=== PATIENT | male | born 1940 | race American Indian/Alaskan Native ===

== ENCOUNTER 2017-01-03 07:37 | Outpatient (CLI) | payer MEDICARE ==
--- NOTE | 2017-01-03 11:08 | Cat Scan Report ---
CT scan of abdomen and pelvis without IV contrast: History: Malignant neoplasm of prostate. Findings: Normal lung bases. No pleural or pericardial effusion. Normal liver spleen pancreas and gallbladder. Normal adrenals. There is 5 mm nonobstructing calculus noted left kidney. 1 mm nonobstructing calculus right kidney. Normal bladder. No free intraperitoneal fluid or air. No evidence of adenopathy. Normal aorta. Normal appendix and terminal ileum. No evidence of diverticulitis. Gaseous colon with minimal volume stool in colon. Subarticular cyst formation is noted at the lumbar vertebral bodies with osteophytes at the articular surface probably related to degenerative changes and less likely metastatic disease. If clinically indicated bone scan examination may be advised. Impression: Nonobstructing calculus right and left kidney. Additional findings as detailed above.
--- NOTE | 2017-01-06 10:29 | Nuclear Medicine Report ---
Whole body bone scan: Examination performed 825 mCi technetium 99 MDP. Findings: Uniform distribution of activity is noted at barium, cervical, thoracic and lumbar spine. Normal activity is noted in the pelvis and ribs. Focal area of increased activity is noted at the sternum. Focal area of increase in activity is noted at the region of the left greater trochanter and right greater trochanter. Normal activity is noted at the kidneys and bladder. Impression: Focal area of increase activity in the sternum may be posttraumatic or from metastasis. Radiographic correlation may be advised. Focal areas of increased activity at the right and left greater trochanter. Radiographic correlation is advised.
== END 2017-01-03 07:38 | disposition home or self-care (01) ==
LOC: NM 07:37
PROVIDERS: ATTEND Urology
DX: C61 Malignant neoplasm of prostate (principal); N20.0 Calculus of kidney; M85.68 Other cyst of bone, other site; M25.78 Osteophyte, vertebrae
CPT/HCPCS: 74176; 78306; A9503

== ENCOUNTER 2019-09-01 11:02 | Observation (INO) | payer MEDICARE ==
[2019-08-25 12:02] LABS: Basophils % (Auto) 0.8 % (0.0-1.8); Eosinophils % (Auto) 1.4 % (0.0-4.3); Hematocrit 40.2 % (35.5-45.6); Hemoglobin 13.4 gm/dl (11.8-15.2); Lymphocytes # (Auto) 0.5 K/mm3 (1.2-5.4); Lymphocytes % (Auto) 18.2 % (13.4-35.0); Mean Corpuscular HGB Conc 33 % (32-34); Mean Corpuscular Volume 94 fl (84-94); Monocytes # (Auto) 0.3 K/mm3 (0.0-0.8); Monocytes % (Auto) 11.4 % (0.0-7.3); Platelet Count 170 K/mm3 (140-440); Red Blood Count 4.28 M/mm3 (3.65-5.03); Red Cell Distribution Width 13.8 % (13.2-15.2)
--- NOTE | 2019-08-25 12:07 | Anesthesia Consultation ---
Anesthesia Consult and Med Hx Date of service: 08/25/19 - Airway Anesthetic Teeth Evaluation: Partials ROM Head & Neck: Adequate Mental/Hyoid Distance: Adequate Mallampati Class: Class II Intubation Access Assessment: Good - Pre-Operative Health Status ASA Pre-Surgery Classification: ASA2 Proposed Anesthetic Plan: General - Pulmonary Hx Smoking: Yes (STOPPED 1983) Hx Asthma: No Hx Respiratory Symptoms: No Hx Sleep Apnea: No (ERIC PRE SCREEN HIGH RISK.) - Cardiovascular System Hx Hypertension: Yes (X 10 YRS. States he can climb two flights of stairs) Hx Angina: No (Recent ETT and ECHO ok per patient (approx three months ago)) - Central Nervous System Hx Seizures: No CVA: No - Gastrointestinal Hx Gastroesophageal Reflux Disease: No - Endocrine Hx Renal Disease: No Hx Liver Disease: No Hx Non-Insulin Dependent Diabetes: No Hx Thyroid Disease: No - Hematic Hx Anemia: No Hx Sickle Cell Disease: No - Other Systems Hx Cancer: Yes (Prostate)
[2019-08-25 12:21] LABS: Alanine Aminotransferase 21 units/L (7-56); Albumin 3.9 g/dL (3.9-5); BUN/Creatinine Ratio 20; Blood Urea Nitrogen 16 mg/dL (9-20); Calcium 9.1 mg/dL (8.4-10.2); Hemolysis Index 11
[~2019-09-01 11:02] MED LIST: GENTAMICIN/NS 80 MG/100 ML 100 ML IV SCH; VANCOMYCIN/NS 1 GM/250 ML 1 GM/250 ML BAG IV NR
[2019-09-01] MEDS ORDERED: ONDANSETRON 4 MG/2 ML INJ IV PRN ×2 (12:11→15:00)
--- NOTE | 2019-09-01 12:12 | Anesthesia Day of Surgery ---
Anesthesia Day of Surgery - Day of Surgery Patient Examined: Yes Patient H&P Reviewed: Yes Patient is NPO: Yes
[2019-09-01] MEDS ORDERED: BUPIVACAINE/PF (0.5%) 5 MG/1 ML 30 ML VIAL INFILTRATI ONE (12:37)
[2019-09-01] MEDS ORDERED: GENTAMICIN 40 MG/ML VIAL 2 ML ONE (12:38)
[2019-09-01] MEDS ORDERED: SODIUM CHLORIDE 0.9% 500 ML 500 ML ONE (12:38)
[2019-09-01] MEDS ORDERED: rifAMPin 600 MG VIAL ONE (12:38)
[2019-09-01] MEDS ORDERED: SODIUM CHLORIDE P/F VIAL 10 ML 30 ML ONE (12:38)
[2019-09-01] MEDS: LACTATED RINGERS 1,000 ML IV SCH (12:40)
[2019-09-01] MEDS ORDERED: NEOMY 40 MG/POLYMYXIN B 200,000 UNITS/ML (GU) AMPULE IR ONE ×2 (12:49→14:03)
[2019-09-01] MEDS ORDERED: SODIUM CHLORIDE 0.9% 50 ML ONE (12:49)
[2019-09-01] MEDS ORDERED: PROPOFOL 200 MG/20 ML VIAL IV ONE ×2 (13:17→14:07)
[2019-09-01] MEDS ORDERED: fentaNYL 100 MCG/2 ML INJ ONE ×3 (13:18→15:24)
[2019-09-01] MEDS ORDERED: LIDOCAINE MPF (2%) 20 MG/1 ML VIAL 5 ML ONE (13:19)
[2019-09-01] MEDS ORDERED: GLYCOPYRROLATE 0.4 MG/2 ML INJ ONE (13:32)
[2019-09-01] MEDS ORDERED: dexAMETHasone 20 MG/5 ML VIAL ONE (13:32)
[2019-09-01] MEDS ORDERED: PHENYLEPHRINE/NS 1,000 MCG/10 ML SYRINGE (OR USE) IV ONE (13:32)
[2019-09-01] MEDS ORDERED: ONDANSETRON 4 MG/2 ML INJ ONE ×2 (13:32→15:25)
[2019-09-01] MEDS ORDERED: ePHEDrine SULFATE 50 MG/1 ML INJ ONE (13:33)
[2019-09-01] MEDS ORDERED: rifAMPin 600 MG VIAL IV ONE (14:03)
[2019-09-01] MEDS ORDERED: BUPIVACAINE/PF (0.5%) 5 MG/1 ML 10 ML VIAL INFILTRATI ONE (14:03)
[2019-09-01] MEDS ORDERED: GENTAMICIN 40 MG/ML VIAL 2 ML IV ONE (14:03)
--- NOTE | 2019-09-01 14:58 | Consultation ---
History of Present Illness - Reason for Consult Consult date: 09/01/19 Medical Management Requesting physician: WARD ESCOBAR - History of Present Illness 79 YO Male with CaP,HLD, HTN admitted for elective Urologic Surgery. Consult placed by Dr. Escobar for medical management. Pt seen and evaluated in his room. Pt denies fever, chills, CP, Palpitations, NVD, Trauma, or recent ill contacts. Pt denies uncontrolled pain. No reported nursing events. Past History Past Medical History: other (see hpi) Past Surgical History: Other (prostatectomy) Social history: . denies: smoking, alcohol abuse, prescription drug abuse Family history: hypertension Medications and Allergies Allergies Allergy/AdvReac Type Severity Reaction Status Date / Time No Known Allergies Allergy Verified 12/01/13 23:34 Home Medications Medication Instructions Recorded Confirmed Last Taken Type Atorvastatin Calcium [Lipitor] 40 mg PO DAILY 12/24/18 09/01/19 08/31/19 19:00 History Lisinopril [Zestril] 40 mg PO DAILY 12/24/18 09/01/19 09/01/19 05:00 History Active Meds: Active Medications Fentanyl (Sublimaze) 50 mcg IV Q5MIN PRN PRN Reason: Pain , Severe (7-10) Stop: 09/01/19 23:59 Gentamicin Sulfate/Sodium Chloride (Gentamicin/Ns 80 Mg/100 Ml) 100 mls @ 200 mls/hr IV PREOP CHIKA Stop: 09/01/19 23:00 Vancomycin HCl (Vancomycin/Ns 1 Gm/250 Ml) 1 gm in 250 mls @ 167.007 mls/hr IV PREOP NR; Protocol Stop: 09/01/19 23:00 Last Admin: 09/01/19 13:05 Dose: 167.007 mls/hr Documented by: Lactated Ringer's (Lactated Ringers) 1,000 mls @ 125 mls/hr IV DIRECT CHIKA Last Admin: 09/01/19 12:40 Dose: 125 mls/hr Documented by: Ondansetron HCl (Zofran) 4 mg IV ONCE PRN PRN Reason: Nausea And Vomiting Review of Systems Constitutional: no weight loss, no weight gain, no fever, no chills Ears, nose, mouth and throat: no ear pain, no ear discharge, no tinnitis, no nos e pain, no nasal congestion Cardiovascular: no chest pain, no orthopnea, no palpitations, no rapid/irregular heart beat, no edema Respiratory: no cough, no cough with sputum, no shortness of breath Gastrointestinal: no abdominal pain, no nausea, no vomiting, no constipation, no change in bowel habits Genitourinary Male: no hematuria, no flank pain, no discharge, no urinary frequency, no urinary hesitancy Rectal: no pain, no incontinence, no bleeding Musculoskeletal: no neck stiffness, no neck pain, no arm numbness/tingling, no shooting leg pain Integumentary: no rash, no pruritis, no sores, no wounds, no jaundice Neurological: no head injury, no paralysis, no weakness, no numbness, no seizur es, no syncope Psychiatric: no anxiety, no change in sleep habits, no sleep disturbances, no insomnia Endocrine: no cold intolerance, no heat intolerance, no polyphagia, no polydipsia, no polyuria, no flushing Hematologic/Lymphatic: no easy bruising, no easy bleeding, no lymphadenopathy, no lymphedema Allergic/Immunologic: no urticaria, no allergic rhinitis Exam - Constitutional Vitals: Temp Pulse Resp BP Pulse Ox 98.1 F 56 L 16 156/80 100 09/01/19 12:05 09/01/19 12:05 09/01/19 12:05 09/01/19 12:05 09/01/19 12:05 General appearance: Present: no acute distress, well-nourished - EENT Eyes: Present: PERRL ENT: hearing intact, clear oral mucosa - Neck Neck: Present: supple, normal ROM - Respiratory Respiratory effort: normal Respiratory: bilateral: CTA - Cardiovascular Heart Sounds: Present: S1 & S2. Absent: rub, click - Extremities Extremities: pulses symmetrical, No edema Peripheral Pulses: within normal limits - Abdominal General gastrointestinal: Present: soft, non-tender, non-distended, normal bowel sounds Male genitourinary: Present: normal - Integumentary Integumentary: Present: clear, warm, dry - Musculoskeletal Musculoskeletal: gait normal, strength equal bilaterally - Psychiatric Psychiatric: appropriate mood/affect, intact judgment & insight - Neurologic Neurologic: CNII-XII intact, moves all extremities Results - Labs CBC & Chem 7: 08/25/19 11:35 08/25/19 11:35 Assessment and Plan - Patient Problems (1) HTN (hypertension) Current Visit: Yes Status: Acute Qualifiers: Hypertension type: essential hypertension Qualified Code(s): I10 - Essential (primary) hypertension Plan to address problem: Monitor BP q shift, supportive care, continue medical management. (2) HLD (hyperlipidemia) Current Visit: Yes Status: Acute Qualifiers: Hyperlipidemia type: mixed hyperlipidemia Qualified Code(s): E78.2 - Mixed hyperlipidemia Plan to address problem: balanced diet, low fat diet, low cholesterol diet, statin therapy (3) Prostate cancer Current Visit: Yes Status: Acute Plan to address problem: S/P urologic surgery, supportive care, (4) DVT prophylaxis Current Visit: Yes Status: Acute Plan to address problem: SCD to BLE while in bed.
[2019-09-01] MEDS ORDERED: SODIUM CHLORIDE 0.45% 1000 ML 1,000 ML IV SCH (15:00)
[2019-09-01] MEDS ORDERED: ZOLPIDEM 5 MG TAB PO PRN (15:00)
[2019-09-01] MEDS ORDERED: HYDROcodone/ACETAMINOPHEN 5-325 MG TAB PO PRN (15:00)
[2019-09-01] MEDS ORDERED: ACETAMINOPHEN 325 MG TAB PO PRN (15:00)
[2019-09-01] MEDS ORDERED: NALOXONE 0.4 MG/1 ML INJ IV PRN (15:00)
--- NOTE | 2019-09-01 15:00 | Short Stay Summary ---
Short Stay Documentation Date of service: 09/01/19 - History H&P: obtained from office - Allergies and Medications Current Medications: Allergies No Known Allergies Allergy (Verified 12/01/13 23:34) Home Medications Medication Instructions Recorded Confirmed Last Taken Type Atorvastatin Calcium [Lipitor] 40 mg PO DAILY 12/24/18 09/01/19 08/31/19 19:00 History Lisinopril [Zestril] 40 mg PO DAILY 12/24/18 09/01/19 09/01/19 05:00 History Active Medications Fentanyl (Sublimaze) 50 mcg IV Q5MIN PRN PRN Reason: Pain , Severe (7-10) Stop: 09/01/19 23:59 Gentamicin Sulfate/Sodium Chloride (Gentamicin/Ns 80 Mg/100 Ml) 100 mls @ 200 mls/hr IV PREOP CHIKA Stop: 09/01/19 23:00 Vancomycin HCl (Vancomycin/Ns 1 Gm/250 Ml) 1 gm in 250 mls @ 167.007 mls/hr IV PREOP NR; Protocol Stop: 09/01/19 23:00 Last Admin: 09/01/19 13:05 Dose: 167.007 mls/hr Documented by: Lactated Ringer's (Lactated Ringers) 1,000 mls @ 125 mls/hr IV DIRECT CHIKA Last Admin: 09/01/19 12:40 Dose: 125 mls/hr Documented by: Ondansetron HCl (Zofran) 4 mg IV ONCE PRN PRN Reason: Nausea And Vomiting - Brief post op/procedure progress note Date of procedure: 09/01/19 Pre-op diagnosis: ed Post-op diagnosis: same Procedure: ipp, coloplast-----20cm + 1cm RTE, scrotaplasty Anesthesia: GETA Surgeon: WARD RAI Estimated blood loss: minimal Pathology: list (scrotal skin) Specimen disposition: to lab Condition: stable - Hospital course Hospital course: pt has pain meds & abx at home post op info on chart looks good dc roman - done dc home - Disposition Condition at discharge: Stable Short Stay Discharge Plan Follow up with: WILLIS CASTAÑEDA MD [Primary Care Provider] - 7 Days
[2019-09-01] MEDS: fentaNYL 100 MCG/2 ML INJ IV PRN ×2 (15:25→15:39)
[2019-09-01] MEDS: MORPHINE 2 MG/1 ML INJ IV PRN (19:43)
--- NOTE | 2019-09-01 20:37 | Operative Report ---
PREOPERATIVE DIAGNOSIS: Organic impotence. POSTOPERATIVE DIAGNOSIS: Organic impotence, redundant scrotal skin. PROCEDURES: Insertion of inflatable penile prosthesis, pharmacologic injection of corporal cavernosum, scrotoplasty, insertion of inflatable penile prosthesis (Coloplast Titan 20 cm, +1 cm rear tip home care manager). SURGEON: Lex Escobar MD BARBER APPRENTICE: Minoo Kaplan. ANESTHESIA: General. ESTIMATED BLOOD LOSS: Minimal. FLUIDS: Crystalloid. COMPLICATIONS: No complications. INDICATIONS: This patient is a 79-year-old gentleman known to our service with a history of prostate cancer. He also has a history of hypertension, hyperlipidemia. He is presently on hormone ablation for his prostate cancer. Last PSA was 2. Long history of erectile dysfunction. Discussed options. The patient agreed to proceed with surgical intervention. DESCRIPTION OF PROCEDURE: The patient was taken to the operative suite, placed in a supine position. After adequate general anesthesia, he was prepped and draped in the sterile fashion. Jordan catheter was placed on the operative field. Minoo Kaplan was present throughout the case to assist at the bedside. Transscrotal incision was made with the Bovie. Sharp dissection was taken down to the corporal bodies. 60 mL of dilute 0.25% Marcaine was injected into the corporal body to aid with postoperative pain as well as identification of any curvature or plaque. Exam was normal. 2-0 Vicryl was placed in the corporal bodies. Corporotomies were made bilaterally using the measuring tool, total length of 21 cm. Therefore, a 20 cm Coloplast Titan device was used and a 1 cm rear tip home care manager. Copious irrigation was performed. Adequate hemostasis achieved. A 125 mL reservoir was prepped, placed in the retropubic space via the right external ring. It was inflated with 100 mL of saline. The cylinders and rear tip extenders were prepped and placed in the corporal bodies with the aid of a Brad needle. Corporotomies were closed with 2-0 Vicryl in a running fashion. Insufflation of the device 60 mL of fluid. The patient had an adequate erection, no curvature or plaque could be appreciated. It was deflated. Using the quick click connection system, the pump was connected to the reservoir. It was inflated again with an excellent cosmetic appearance, deflated. The pump was placed in the dependent portion of the scrotum. Pursestring suture was used to secure it using 2-0 Vicryl. A running 2-0 Vicryl was then used to close the skin. Redundant scrotal skin was then excised and sent for routine pathologic evaluation. Scrotal skin was closed in a longitudinal fashion using 2-0 Monocryl in interrupted fashion. Xeroform gauze was placed. The device was inflated to approximately 75% full erection. Mummy wrap was placed. The patient tolerated the procedure well and was extubated and taken to recovery room. He will be observed overnight. The patient has his prescriptions for pain and antibiotics. He has Cipro and [place]. JOB# [id number] [facility]/PITER
--- NOTE | 2019-09-01 21:48 | Post Anesthesia Evaluation ---
- Post Anesthesia Evaluation Patient Participated: Yes Airway Patent: Yes Stable Respiratory Function: Yes Nausea/Vomiting: No Temp > 96.8F: Yes Pain Manageable: Yes Adequeate Hydration: Yes Anesthesia Complications: No Block Receding Appropriately: Not Applicable Patient on Ventilator: No
[2019-09-02] MEDS: LACTATED RINGERS 1,000 ML IV SCH (00:46)
[2019-09-02] MEDS: MORPHINE 2 MG/1 ML INJ IV PRN (01:43)
[2019-09-02 08:51] VITALS: BP 137/68
[2019-09-02] MEDS ORDERED: LISINOPRIL 40 MG TAB PO SCH (10:00)
== END 2019-09-02 10:10 | disposition home or self-care (01) ==
LOC: OR 11:02 → 3B-SURG 15:00
PROVIDERS: ADMIT Urology; ATTEND Urology
DX: N52.9 Male erectile dysfunction, unspecified (principal); C61 Malignant neoplasm of prostate; E78.5 Hyperlipidemia, unspecified; I10 Essential (primary) hypertension
CPT/HCPCS: 36415; 54401; 55175; 80053; 85025; 88302; 96365; 96375; 96376; C1813; G0378; J1100; J1580; J2270; J2370; J2405; J2704; J3010; J3370; J3490; J7030; J7040; J7120; 88305

== ENCOUNTER 2022-03-13 13:39 | Day surgery (SDC) | payer MEDICARE ==
[2022-03-08 09:55] LABS: Hematocrit 39.5 % (35.5-45.6); Hemoglobin 12.7 gm/dl (11.8-15.2); Mean Corpuscular HGB Conc 32 % (32-34); Mean Corpuscular Volume 93 fl (84-94); Platelet Count 283 K/mm3 (140-440); Red Blood Count 4.25 M/mm3 (3.65-5.03); Red Cell Distribution Width 14.1 % (13.2-15.2)
[2022-03-08 11:11] LABS: Alanine Aminotransferase 13 units/L (7-56); Albumin 3.6 g/dL (3.9-5); BUN/Creatinine Ratio 13; Blood Urea Nitrogen 17 mg/dL (9-20); Calcium 9.4 mg/dL (8.4-10.2); Hemolysis Index 4
--- NOTE | 2022-03-13 07:20 | Anesthesia Consultation ---
Anesthesia Consult and Med Hx Date of service: 03/13/22 - Airway Anesthetic Teeth Evaluation: Good ROM Head & Neck: Adequate Mental/Hyoid Distance: Adequate Mallampati Class: Class II Intubation Access Assessment: Good - Pulmonary Exam CTA: Yes - Cardiac Exam Cardiac Exam: RRR - Pre-Operative Health Status ASA Pre-Surgery Classification: ASA2 Proposed Anesthetic Plan: General - Pulmonary Hx Smoking: Yes (STOPPED X 45 YRS) Hx Respiratory Symptoms: No Hx Sleep Apnea: No (ERIC PRE SCREEN HIGH RISK) - Cardiovascular System Hx Hypertension: Yes (X 12 YRS) - Central Nervous System CVA: No Hx Psychiatric Problems: No - Gastrointestinal Hx Gastroesophageal Reflux Disease: No - Endocrine Hx Non-Insulin Dependent Diabetes: No Hx Thyroid Disease: No - Hematic Hx Anemia: No - Other Systems Hx Cancer: Yes
--- NOTE | 2022-03-13 07:21 | Anesthesia Day of Surgery ---
Anesthesia Day of Surgery - Day of Surgery Patient Examined: Yes Patient H&P Reviewed: Yes Patient is NPO: Yes
--- NOTE | 2022-03-13 09:32 | Short Stay Summary ---
Short Stay Documentation Date of service: 03/13/22 - History H&P: obtained from office - Allergies and Medications Current Medications: Allergies No Known Allergies Allergy (Verified 12/01/13 23:34) Home Medications Medication Instructions Recorded Confirmed Last Taken Type Atorvastatin Calcium [Lipitor] 40 mg PO DAILY 12/24/18 03/07/22 08/31/19 19:00 History Lisinopril [Zestril] 40 mg PO DAILY 12/24/18 03/07/22 09/01/19 05:00 History atenoloL [Tenormin] 50 mg PO DAILY 03/07/22 03/07/22 Unknown History Active Medications Hydrocodone Bitart/Acetaminophen (Hydrocodone/Acetaminophen 5-325 Mg Tab) 2 each PO ONCE PRN PRN Reason: Pain, Moderate (4-6) Stop: 03/13/22 18:00 Hydromorphone HCl (Hydromorphone 0.5 Mg/0.5 Ml Inj) 0.5 mg IV Q10MIN PRN PRN Reason: Pain , Severe (7-10) Stop: 03/13/22 18:00 Lactated Ringer's (Lactated Ringers) 1,000 mls @ 100 mls/hr IV DIRECT CHIKA Stop: 03/13/22 23:59 Ondansetron HCl (Ondansetron 4 Mg/2 Ml Inj) 4 mg IV ONCE PRN PRN Reason: Nausea And Vomiting Stop: 03/13/22 17:00 - Brief post op/procedure progress note Date of procedure: 03/13/22 Pre-op diagnosis: left ureteral stone 8mm Post-op diagnosis: same Procedure: cysto, ureteroscopy basket stone, stent & external string Anesthesia: GETA Surgeon: WARD RAI Estimated blood loss: none Condition: stable - Hospital course Hospital course: macrobid , norco & post op info on chart - Disposition Condition at discharge: Stable Disposition: 01 HOME / SELF CARE / HOMELESS Short Stay Discharge Plan Follow up with: REA CORADO MD [Primary Care Provider] - 7 Days
--- NOTE | 2022-03-13 10:09 | Operative Report ---
DATE OF SURGERY: 03/13/2022 PREOPERATIVE DIAGNOSIS: Left ureteral stone, 8 mm. POSTOPERATIVE DIAGNOSIS: Left ureteral stone, 8 mm. PROCEDURE PERFORMED: Cystoscopy, bilateral retrograde pyelograms, left ureteroscopy, holmium laser lithotripsy, basket stone extraction, double-J stent placement (6-Libyan, 26 cm with an external string). SURGEON: Lex Escobar MD ANESTHESIA: General. ESTIMATED BLOOD LOSS: Minimal. FLUIDS: Crystalloid. COMPLICATIONS: No complications. INDICATIONS: This patient is a 81-year-old gentleman known to our service for several years; also with a diagnosis of prostate cancer, status post radiation therapy several years ago; also penile implant, developed some left flank pain. CT of abdomen and pelvis revealed an 8 mm stone. We discussed options. He agreed to proceed with surgical intervention. Risks, benefits and complications were explained. DESCRIPTION OF PROCEDURE: The patient was taken to the operative suite and placed in a supine position. After adequate general anesthesia, placed in a dorsal lithotomy position, prepped and draped in a sterile fashion. Pancystourethroscopy was performed with a 22-Libyan Storz cystoscope, had a mild bulbar stricture, but the scope could traverse without difficulty. Prostate displayed mild trilobar obstruction. Bladder has diffuse trabeculation. No tumors or stones in the bladder. Both ureteral orifices in normal position. Bilateral retrograde pyelograms were obtained with an 8-Libyan Lizandro catheter and 8 mL of contrast. No filling defects or obstruction on the right. He had some J hooking bilaterally. He had obvious filling defect in the distal ureter on the left. Difficulty placing the wire due to the obstructing stone, but I was able to advance a 0.035 Glidewire x2 past the stone. Rigid ureteroscopy was done and yellow stone could be appreciated. It was engaged with a 200 micron holmium laser lithotripsy, starting at 4 gastelum going up to 10 gastelum with adequate fragmentation of the stone. I also used a Coloplast basket to extract some of the larger fragments and sent for routine pathologic evaluation. Ureteroscopy up to the renal pelvis, no other stones could be appreciated. A 6-Libyan, 26 cm double-J stent with an external string was left indwelling. Rectal exam was benign. His bladder was drained. He was extubated and taken to recovery room. He will go home on [employer] mag[facility] Esquivel. TID: [id number] RECEIPT: [id number] JULIEN/MARBELLA
--- NOTE | 2022-03-13 10:10 | Fluoroscopy Report ---
FL RETROGRADE UROGRAPHY INDICATION / CLINICAL INFORMATION: LEFT URETERAL STONE. COMPARISON: None available. FINDINGS: Multiple images were obtained during bilateral retrograde pyelography. No abnormality is seen on scou t images. Contrast was injected into both ureters and pelvicalyceal systems. A double-J left ureteral stent was placed. No complication of the procedure is seen. Fluoroscopy time: 1.5 minutes. Fluoroscopic images: 10. Signer Name: Herson Cardenas MD Signed: 03/13/2022 10:05 AM Workstation Name: [id number]
[2022-03-13 11:51] VITALS: BP 162/56
[~2022-03-13 13:39] MED LIST changes: -GENTAMICIN/NS 80 MG/100 ML 100 ML IV SCH; +GLYCOPYRROLATE 0.4 MG/2 ML INJ ONE; +HYDROcodone/ACETAMINOPHEN 5-325 MG TAB PO PRN; +HYDROmorphone 0.5 MG/0.5 ML INJ IV PRN; +HYDROmorphone 1 MG/1 ML INJ ONE; +KETOROLAC 30 MG/1 ML INJ ONE; +LACTATED RINGERS 1,000 ML IV SCH; +LIDOCAINE MPF (2%) 20 MG/1 ML VIAL 5 ML ONE; +METHYLENE BLUE 50 MG/10 ML AMP ONE; +ONDANSETRON 4 MG/2 ML INJ IV PRN; +ONDANSETRON 4 MG/2 ML INJ ONE; -VANCOMYCIN/NS 1 GM/250 ML 1 GM/250 ML BAG IV NR; +ceFAZolin/STERILE WATER 2 GM/20 ML SYRINGE IV NR; +ceFAZolin/Water 2 GM/20 ML 2 GM/20 ML SYRINGE IV ONE; +propofoL 200 MG/20 ML VIAL IV ONE
--- NOTE | 2022-03-13 13:52 | Post Anesthesia Evaluation ---
- Post Anesthesia Evaluation Patient Participated: Yes Airway Patent: Yes Stable Respiratory Function: Yes Nausea/Vomiting: No Temp > 96.8F: Yes Pain Manageable: Yes Adequeate Hydration: Yes Anesthesia Complications: No
== END 2022-03-13 19:38 | disposition home or self-care (01) ==
LOC: OR 13:39
PROVIDERS: ATTEND Urology
DX: N20.1 Calculus of ureter (principal); I10 Essential (primary) hypertension; E78.5 Hyperlipidemia, unspecified; Z79.899 Other long term (current) drug therapy; Z85.46 Personal history of malignant neoplasm of prostate; Z87.891 Personal history of nicotine dependence; Z20.822 Contact with and (suspected) exposure to COVID-19; Z98.890 Other specified postprocedural states
CPT/HCPCS: 36415; 52356; 74420; 80053; 85027; C1758; C1769; C2617; J0690; J1170; J1815; J1885; J2405; J2704; J7120; Q9967; U0003; Q9968